=== PATIENT | female | born 1965 | race Caucasian/White ===

== ENCOUNTER → 2018-07-29 | Outpatient (CLI) | payer BC ==
--- NOTE | 2018-07-29 15:13 | CONS ---
Assessment/Plan Assessment/Plan Hospital Course (Demo Recall) 53-year-old female with right greater trochanteric bursitis and IT band tendinitis. Hip x-rays are normal. We will begin conservative treatment. Plan: Physical therapy Meloxicam Follow-up 12 weeks Consultation Date/Type/Reason Admit Date/Time Date of Consultation: Jul 29, 2018 Reason for Consultation Right hip pain Date/Time of Note DATE: 07/29/18 TIME: 15:04 Hx of Present Illness This is a 53-year-old female who presents with a history of right hip pain for 2 months. Patient states the pain is in the lateral aspect of the hip. The pain does radiate to the knee. It is described as sharp at times and as a dull ache. The pain is rated as a 2/10 with activity and to/10 at rest. Walking tolerance is limited. She recently started walking a lot in order to lose weight. No external support. The patient at times does admit to a limp. It is difficult to sleep on the affected side at night secondary to pain. There are no symptoms to suggest referred pain from the back no radicular symptoms. Treatment to date has included oral anti-inflammatories, activity modification. The patient states that treatment to date has not provided adequate relief of symptoms, prompting consultation. Duration: 2 months Injury: No Walking tolerance: Limited Limp: At times Support: No Stairs: Uses normally Physical Therapy: No Injections:No NSAID's: ibuprofen as needed Prior surgery: No Back pain: No, distant history Knee pain: No Risk of AVN : No Patient denies fever, chills, shortness of breath, chest pain, nausea/vomiting, constipation, diarrhea, numbness, and tingling. Past Medical History Diabetes Past Surgical History Colonoscopy [facility] teeth extraction Family History Significant Family History: no pertinent family hx Social History Alcohol Use: occasionally (2 drinks per week) Smoking Status: Never smoker Drug Use: none Exam/Review of Systems Exam Vitals Weight: 200 Height: 5 foot 3 inches BMI: 35.4 Heart Rate: 76 Blood Pressure: 123/60 Exam General: Alert, oriented. Vital signs: Noted on the chart. Heart: Regular rate and rhythm. Lungs: No respiratory distress. No accessory muscle use. Musculoskeletal: Well developed obese female in no apparent distress. Gait demonstrates a mild Trendelenburg with antalgic components and no short leg component. Standing, the pelvis is level and supine there is no true leg length discrepancy. There is tenderness over trochanteric bursa and IT band. Positive Obers Test Range of motion: Flexion: 120 Extension: 0 Internal rotation: 20 External rotation: 45 Abduction: 45 Adduction: Midline Sitting there is [] pelvic obliquity. Minimal to no pain at the extremes of motion of the affected hip. Skin was intact throughout both lower extremities. Sensation intact to light touch in a sural, saphenous, deep peroneal, superficial peroneal, medial and lateral plantar nerve distribution. Neur ovascular exam showed 5/5 strength in the abductors, quads, EHL/tibialis anterior/gastroc. Normal and symmetrical pulses were palpated in both the dorsalis pedis and posterior tibial arteries. There is no sign of venous stasis. Imaging Imaging The patient received a full set of films and personally reviewed by myself today in clinic including an AP pelvis and an AP and lateral of the affected hip. The hip is reduced. There is no significant loss of joint space. There is no osteophyte formation. There is no subchondral sclerosis. There are no subchondral cysts. There is no significant deformity of the the proximal femur, femoral neck, or acetabulum. The pelvis is in continuity. Bone quality radiographically: AVIS Thomas MD Jul 29, 2018 15:13
--- NOTE | 2018-07-31 06:14 | RADRPT ---
PROCEDURE: XR pelvis and right Hip. CLINICAL INDICATION: Pain TECHNIQUE: AP pelvis and AP and frog lateral views of the right hip were performed. COMPARISON: None. FINDINGS: No evidence of acute fractures or dislocations. The bony mineralization is normal. No focal bony negra tic or lytic lesions. Soft tissues are unremarkable. IMPRESSION: No evidence acute fractures or dislocations. RPTAT:AAJJ Physician Suzanne Date Time Electronically viewed and signed by Sriram Marie Physician on 07/31/2018 06:13 /
== END | disposition home or self-care (01) ==
LOC: HKI 13:43
PROVIDERS: ATTEND Orthopaedic Surgery Adult Reconstructive Orthopaedic Surgery
DX: M70.61 Trochanteric bursitis, right hip (principal)
CPT/HCPCS: 73502; G0463